=== PATIENT | male | born 1995 | race Caucasian/White ===

== ENCOUNTER 2020-10-17 19:25 | Emergency (ER) | payer BC ==
[~2020-10-17] VITALS: Ht 193 cm; Wt 95.3 kg
[2020-10-17 19:41] VITALS: BP_SYST 149
[2020-10-17] MEDS ORDERED: LIDOCAINE 1% 10 MG/ML, 20 ML MDV INJ ONE (19:45)
[2020-10-17] MEDS ORDERED: BACITRACIN 1 GM OINT TP ONE (19:45)
--- NOTE | 2020-10-17 19:47 | NUR ---
ER Dr. Gonzalez at Triage room to exam patient.
--- NOTE | 2020-10-17 19:48 | NUR ---
Patient to ER bed 6 to gown for evaluation. Side rails up. Report given to RUDOLPH Evans.
--- NOTE | 2020-10-17 19:55 | NUR ---
PATIENT IS AWAKE AND ALERT. PATIENT C/O LACERTATION TO FINGER ON LEFT HAND WHILE AT WORK. PAIN STATED 07/20. BLEEDING CONTROLLED. NO OTHER COMPLAINTS AT THIS TIME. WILL CONTINUE TO MONITOR.
--- NOTE | 2020-10-17 19:57 | NUR ---
XRAY AT BEDSIDE.
--- NOTE | 2020-10-17 21:05 | NUR ---
Patient has a 1 cm laceration to FINGER ON LEFT HAND. Dr. ESPINAL applied sutures using sterile technique. Edges well approximated. Site cleansed with bedadine. Dressing applied to site. No bleeding noted. Pt tolerated well.
[2020-10-17 21:20] VITALS: BP_SYST 149
--- NOTE | 2020-10-17 21:20 | NUR ---
Patient given written and verbal discharge instructions and verbalizes understanding. ER MD ESPINAL discussed with patient the results and treatment provided. Patient in stable condition. ID arm band removed. Patient educated on pain management and to follow up with PMD. Pain Scale 0/10. Opportunity for questions provided and answered. Medication side effect fact sheet provided.
== END 2020-10-17 21:20 | disposition home or self-care (01) ==
LOC: SED 19:25
DX: S67.197A Crushing injury of left little finger, initial encounter (principal); S61.217A Laceration without foreign body of left little finger without damage to nail, initial encounter; Z91.018 Allergy to other foods; W23.0XXA Caught, crushed, jammed, or pinched between moving objects, initial encounter; Y93.89 Activity, other specified; Y92.89 Other specified places as the place of occurrence of the external cause; Y99.8 Other external cause status
CPT/HCPCS: 12001; 73140; 99283; J2001